=== PATIENT | male | born 1970 | race Two or more races ===

== ENCOUNTER 2023-11-04 04:05 | Inpatient (IN) | payer OTHER ==
[2023-11-04] VITALS (12 sets, daily range): BP systolic 106–140; BP diastolic 42–85; PULSE 68–93; RESP 16–19; TEMP 97.8–100; O2SAT 91–99
[~2023-11-04] VITALS: Ht 170.2 cm; Wt 89.8 kg
[~2023-11-04 04:05] MED LIST: PRED20TA2 PO
[2023-11-04] MEDS: IPRATROPIUM BROM 0.5 MG/2.5ML INH SOL NEB ONE ×2 (04:45→04:56)
[2023-11-04] MEDS: ALBUTEROL SULF 2.5 MG/0.5ML(0.5%) NEB SOLN NEB ONE ×2 (04:45→04:56)
[2023-11-04 05:00] LABS: Basophils # (auto) 0.1 10 ^3/uL (0-0.2); Eosinophils # (auto) 0 10 ^3/uL (0-0.8); Eosinophils % (auto) 0.1 % (0.0-7.0); Lymphocytes # (auto) 1.7 10 ^3/uL (0.4-5.4); Monocytes # (auto) 0.9 10 ^3/uL (0-1.3)
[2023-11-04 05:02] LABS: Basophils % (auto) 0.8 % (0.0-2.0); Hematocrit 45.1 % (41.0-53.0); Hemoglobin 14.3 g/dL (13.5-17.5); Lymphocytes % (auto) 13.3 % (10.0-50.0); Mean Corpuscular Hemoglobin 26.5 pg (28.0-32.0); Mean Corpuscular Hgb Conc. 31.6 g/dL (32.0-36.0); Mean Corpuscular Volume 83.6 fL (80.0-100.0); Monocytes % (auto) 6.8 % (0.0-12.0); Neutrophils # (auto) 10.2 10 ^3/uL (1.6-8.6); Nucleated Red Blood Cells % 0.1 %; Red Cell Distribution Width 15.9 % (11.8-14.3)
[2023-11-04 05:08] LABS: Chloride 102 mmol/L (98-107); Potassium 4.3 mmol/L (3.5-5.1); Sodium 138 mmol/L (136-145)
[2023-11-04 05:09] LABS: Anion Gap 10 (5-15); Carbon Dioxide 26 mmol/L (20-30)
[2023-11-04 05:10] LABS: Calcium 9.8 mg/dL (8.5-10.1)
[2023-11-04 05:14] LABS: BUN/Creatinine Ratio 16.8 (10.0-20.0); Blood Urea Nitrogen 22 mg/dL (9-23); Glucose 180 mg/dL (74-106)
[2023-11-04] MEDS: FUROSEMIDE 40 MG/4 ML VIAL IV ONE (07:40)
[2023-11-04] MEDS: cefTRIAXone 1GM/50ML D5W 50 ML IV ONE (07:40)
[2023-11-04] MEDS: AZITHROMYCIN 500MG/ 250ML 250 ML IV ONE (08:26)
[2023-11-04 09:33] LABS: INR 1.27 (0.9-1.15); Prothrombin Time 13.2 sec (9.3-11.8)
[2023-11-04 11:18] LABS: Base Excess 3.1 mmol/L (-2.0-2.0)
[2023-11-04] MEDS: PANTOPRAZOLE 40 MG/10 ML VIAL INJ IV ONE (12:23)
[2023-11-04] MEDS: ASPirin 81 mg TAB PO ONE (12:23)
[2023-11-04] MEDS: METOPROLOL TARTRATE 25 MG TAB PO SCH (12:23)
[2023-11-04] MEDS: IPRATROPIUM BROM 0.5 MG/2.5ML INH SOL NEB SCH (14:12)
[2023-11-04] MEDS: ALBUTEROL SULF 2.5 MG/0.5ML(0.5%) NEB SOLN NEB SCH (14:12)
[2023-11-04] MEDS: IOHEXOL 350 MG/ML 100ML IJ ONE (15:57)
[2023-11-04 15:59] LABS: Urine Bacteria None Seen /hpf (None Seen)
[2023-11-04] MEDS: methylPREDNISolone SOD SUCC 125 MG/2 ML VL IV SCH (16:02)
[2023-11-04 16:33] LABS: Urine Blood Negative /uL (Negative); Urine Clarity Clear (Clear); Urine Color Yellow (Yellow); Urine Hyaline Cast FEW /lpf (0 - 2); Urine Mucus FEW (None Seen); Urine Protein, UAD 1+ (Negative); Urine Specific Gravity 1.019 (1.001-1.035); Urine Urobilinogen Normal (Negative); Urine WBC <1 /hpf (0 - 3)
[2023-11-04 17:01] LABS: Amphetamine Screen, Urine Neg (NEGATIVE); Barbiturate Scree,Urine Neg (NEGATIVE); Benzodiazephine Screen, Urine Neg (NEGATIVE)
[2023-11-04 17:02] LABS: Cannabinoid Screen, Urine Neg (NEGATIVE); Cocaine Screen, Urine Neg (NEGATIVE); Opiate Scree,Urine Neg (NEGATIVE); Phencyclidine Screen, Urine Neg (NEGATIVE)
[2023-11-04 17:15] LABS: COVID19 ANTIGEN SOFIA FIA NEGATIVE (NEGATIVE); Rapid Influenza A Negative (Negative); Rapid Influenza B Negative (Negative)
[2023-11-04] MEDS ORDERED: FUROSEMIDE 20 MG/2 ML VIAL IV SCH (18:00)
[2023-11-04 18:19] LABS: Magnesium 1.6 mg/dL (1.6-2.6)
[2023-11-04] MEDS: FUROSEMIDE 20 MG/2 ML VIAL IV SCH (18:43)
[2023-11-04] MEDS: APIXABAN 2.5 MG TAB PO SCH (22:00)
[2023-11-04] MEDS: AMIODARONE HCL 200 MG TAB PO SCH (22:11)
[2023-11-04] MEDS: APIXABAN 5 MG TAB PO SCH (22:11)
[2023-11-04] MEDS: ATORVASTATIN 20 MG TAB PO SCH (22:11)
[2023-11-05] VITALS (19 sets, daily range): BP systolic 104–119; BP diastolic 31–72; PULSE 51–98; RESP 16–20; TEMP 97.4–98.7; O2SAT 89–100
[2023-11-05 06:22] LABS: Basophils # (auto) 0 10 ^3/uL (0-0.2); Eosinophils # (auto) 0 10 ^3/uL (0-0.8); Hematocrit 41.2 % (41.0-53.0); Hemoglobin 13.2 g/dL (13.5-17.5); Lymphocytes # (auto) 0.7 10 ^3/uL (0.4-5.4); Mean Corpuscular Hgb Conc. 32.1 g/dL (32.0-36.0)
[2023-11-05 06:25] LABS: Basophils % (auto) 0.1 % (0.0-2.0); Lymphocytes % (auto) 8.7 % (10.0-50.0); Mean Corpuscular Hemoglobin 26.5 pg (28.0-32.0); Mean Corpuscular Volume 82.7 fL (80.0-100.0); Monocytes # (auto) 0.2 10 ^3/uL (0-1.3); Monocytes % (auto) 2.1 % (0.0-12.0); Neutrophils # (auto) 7.3 10 ^3/uL (1.6-8.6); Neutrophils % (auto) 89.1 % (37.0-80.0); Nucleated Red Blood Cells % 0.1 %; Red Blood Cells 4.99 10^6/uL (4.5-5.90); Red Cell Distribution Width 15.6 % (11.8-14.3); White Blood Cell 8.2 10^3/uL (4.4-10.8)
[2023-11-05 06:46] LABS: Alanine Aminotransferase 53 U/L (7-40); Alkaline Phosphatase 55 U/L (46-116); Calcium 9.1 mg/dL (8.5-10.1); Carbon Dioxide 33 mmol/L (20-30); Chloride 97 mmol/L (98-107); Potassium 3.7 mmol/L (3.5-5.1); Triglycerides 71 mg/dL (< 150)
[2023-11-05 06:47] LABS: Albumin 3.7 g/dL (3.2-4.8); Anion Gap 7 (5-15); Aspartate Aminotransferase 36 U/L (13-40); BUN/Creatinine Ratio 21.9 (10.0-20.0); Blood Urea Nitrogen 25 mg/dL (9-23); Cholesterol 122 mg/dL (< 200); HDL Cholesterol 37 mg/dL (40-59); LDL Cholesterol 70 mg/dL (< 100); Sodium 137 mmol/L (136-145)
[2023-11-05 06:48] LABS: Bilirubin, Total 1.5 mg/dL (0.2-1.0); Total Protein 6.2 g/dL (5.7-8.2)
[2023-11-05 06:58] LABS: Glucose 286 mg/dL (74-106)
[2023-11-05] MEDS: SILDENAFIL CITRATE 20 MG TAB PO ONE (09:57)
[2023-11-05] MEDS: ASPirin 81 mg TAB PO SCH (09:58)
[2023-11-05] MEDS: EMPAGLIFLOZIN 10 MG TAB PO SCH (09:58)
[2023-11-05] MEDS: PANTOPRAZOLE 40 MG/10 ML VIAL INJ IV SCH (09:59)
[2023-11-05] MEDS: MAGNESIUM SULFATE 1GM/100ML 100 ML IV ONE (09:59)
[2023-11-05] MEDS: levoFLOXacin 500MG 100 ML IV SCH (10:00)
[2023-11-05] MEDS: SILDENAFIL CITRATE 20 MG TAB PO SCH ×2 (14:58→20:59)
[2023-11-05] MEDS: METOPROLOL TARTRATE 25 MG TAB PO SCH (20:59)
[2023-11-06] VITALS (18 sets, daily range): BP systolic 101–119; BP diastolic 41–65; PULSE 60–129; RESP 16–20; TEMP 97.3–98.7; O2SAT 91–100
[2023-11-06] MEDS: IOHEXOL 350 MG/ML 100ML IJ ONE (08:53)
[2023-11-06] MEDS: DIGOXIN 0.125 MG TAB PO SCH (10:10)
[2023-11-06] MEDS: METOPROLOL TARTRATE 1MG/1ML-5ML VIAL IV ONE (14:05)
[2023-11-06] MEDS: SILDENAFIL CITRATE 20 MG TAB PO SCH (14:11)
[2023-11-07] VITALS (15 sets, daily range): BP systolic 106–143; BP diastolic 54–76; PULSE 50–134; RESP 14–20; TEMP 97.5–98.5; O2SAT 9–100
[2023-11-07 05:21] LABS: Chloride 102 mmol/L (98-107); Potassium 3.5 mmol/L (3.5-5.1); Sodium 139 mmol/L (136-145)
[2023-11-07 05:22] LABS: Anion Gap 6 (5-15); Carbon Dioxide 31 mmol/L (20-30)
[2023-11-07 05:28] LABS: BUN/Creatinine Ratio 30.4 (10.0-20.0); Blood Urea Nitrogen 28 mg/dL (9-23)
[2023-11-07 05:33] LABS: Glucose 130 mg/dL (74-106)
[2023-11-07] MEDS: FUROSEMIDE 40 MG/4 ML VIAL IV SCH (09:15)
[2023-11-07] MEDS: LEVALBUTEROL HCL 1.25 MG/3 ML NEB ONE (10:26)
[2023-11-07] MEDS: LEVALBUTEROL HCL 1.25 MG/3 ML NEB NEB SCH (10:26)
[2023-11-07] MEDS: MAGNESIUM SULFATE 1GM/100ML 100 ML IV ONE (11:09)
[2023-11-07] MEDS: POTASSIUM EFFERVESENT TAB 25 MEQ PO ONE (11:16)
[2023-11-07] MEDS: METOPROLOL TARTRATE 25 MG TAB PO SCH (12:24)
[2023-11-07] MEDS: METOPROLOL TARTRATE 1MG/1ML-5ML VIAL IV ONE (13:03)
[2023-11-07] MEDS ORDERED: LEVALBUTEROL HCL 1.25 MG/3 ML NEB NEB PRN (14:00)
[2023-11-07] MEDS ORDERED: BISO5TAB44 PO (16:44)
[2023-11-07] MEDS ORDERED: APIX5TAB PO (16:44)
[2023-11-07] MEDS ORDERED: DIGO0.25 PO (16:44)
[2023-11-07] MEDS ORDERED: LISI-707 PO (16:44)
[2023-11-07] MEDS ORDERED: ATOR20TA PO (16:44)
[2023-11-07] MEDS ORDERED: ALBU108A5 INH (16:44)
[2023-11-07] MEDS ORDERED: FLUT50SP31 EACHNOSTRI (16:44)
[2023-11-07] MEDS ORDERED: FLUT1INH2 INH (16:44)
[2023-11-07] MEDS ORDERED: METF-370 PO (16:44)
[2023-11-08] VITALS (12 sets, daily range): BP systolic 106–127; BP diastolic 53–88; PULSE 55–86; RESP 18–20; TEMP 97.6–98.1; O2SAT 92–99
[2023-11-08 05:34] LABS: Chloride 104 mmol/L (98-107); Potassium 4.2 mmol/L (3.5-5.1); Sodium 141 mmol/L (136-145)
[2023-11-08 05:35] LABS: Anion Gap 2 (5-15); Calcium 8.7 mg/dL (8.7-10.4); Carbon Dioxide 35 mmol/L (20-30)
[2023-11-08 05:39] LABS: Basophils # (auto) 0 10 ^3/uL (0-0.2); Basophils % (auto) 0.1 % (0.0-2.0); Eosinophils # (auto) 0.1 10 ^3/uL (0-0.8); Eosinophils % (auto) 1.2 % (0.0-7.0); Hemoglobin 13.9 g/dL (13.5-17.5); Nucleated Red Blood Cells % 0.1 %
[2023-11-08 05:40] LABS: BUN/Creatinine Ratio 43.5 (10.0-20.0); Glucose 124 mg/dL (74-106); Magnesium 2.2 mg/dL (1.6-2.6)
[2023-11-08 05:42] LABS: Hematocrit 43.1 % (41.0-53.0); Lymphocytes % (auto) 29.6 % (10.0-50.0); Mean Corpuscular Hemoglobin 26.4 pg (28.0-32.0); Mean Corpuscular Hgb Conc. 32.2 g/dL (32.0-36.0); Monocytes # (auto) 0.8 10 ^3/uL (0-1.3); Monocytes % (auto) 8.4 % (0.0-12.0); Neutrophils # (auto) 6.1 10 ^3/uL (1.6-8.6); Neutrophils % (auto) 60.7 % (37.0-80.0); Red Blood Cells 5.26 10^6/uL (4.5-5.90); Red Cell Distribution Width 15.9 % (11.8-14.3); White Blood Cell 10.1 10^3/uL (4.4-10.8)
[2023-11-08 06:22] LABS: Blood Urea Nitrogen 40 mg/dL (9-23)
[2023-11-09] VITALS (8 sets, daily range): BP systolic 104–123; BP diastolic 54–71; PULSE 49–78; RESP 17–20; TEMP 97.3–98.5; O2SAT 93–97
[2023-11-09] MEDS: AMIODARONE HCL 200 MG TAB PO SCH (09:34)
[2023-11-09] MEDS: levoFLOXacin 500 MG TAB PO SCH (09:34)
[2023-11-09] MEDS ORDERED: SILD20TA PO (11:12)
[2023-11-09] MEDS ORDERED: AMIO200T33 PO (11:13)
[2023-11-09] MEDS ORDERED: FURO1TAB33 PO (14:32)
[2023-11-09] MEDS ORDERED: POTA8TAB38 PO (14:32)
== END 2023-11-09 16:30 | disposition home or self-care (01) | DRG 291 ==
LOC: ER 04:05 → TELE 11:36 → TELE-CENTR 17:28
PROVIDERS: ADMIT Nurse Practitioner Family; ATTEND Nurse Practitioner Acute Care
DX: I11.0 Hypertensive heart disease with heart failure (principal); I50.23 Acute on chronic systolic (congestive) heart failure; J96.01 Acute respiratory failure with hypoxia; N17.9 Acute kidney failure, unspecified; R65.10 Systemic inflammatory response syndrome (SIRS) of non-infectious origin without acute organ dysfunction; I48.92 Unspecified atrial flutter; I27.29 Other secondary pulmonary hypertension; I50.82 Biventricular heart failure; I48.0 Paroxysmal atrial fibrillation; J20.9 Acute bronchitis, unspecified; E11.65 Type 2 diabetes mellitus with hyperglycemia; E78.5 Hyperlipidemia, unspecified; I36.1 Nonrheumatic tricuspid (valve) insufficiency; E66.9 Obesity, unspecified; Z20.822 Contact with and (suspected) exposure to COVID-19; I45.10 Unspecified right bundle-branch block; Z79.01 Long term (current) use of anticoagulants; Z79.84 Long term (current) use of oral hypoglycemic drugs; Z68.31 Body mass index [BMI] 31.0-31.9, adult; Z82.49 Family history of ischemic heart disease and other diseases of the circulatory system
CPT/HCPCS: 36415; 36600; 71045; 71275; 80048; 80053; 80061; 80162; 80307; 81001; 82805; 82962; 83036; 83735; 83880; 84443; 84484; 85025; 85379; 85610; 87040; 87426; 87804; 93005; 93306; 94640; 99291; C9113; G0378; J1956